=== PATIENT | male | born 1975 | race Two or more races ===

== ENCOUNTER 2017-11-03 00:13 | Emergency (ER) | payer SELFPAY ==
[~2017-11-03] VITALS: Ht 175.3 cm; Wt 72.6 kg
--- NOTE | 2017-11-03 00:20 | NUR ---
TO BED 16 A 42 YO MALE PATIENT BB RA; LEFT FA LACERATION. PATIENT IS AAOX3. VSS. NAD NOTED. SKIN WARM AND DRY. INITIAL WOUND CARE DONE.
[2017-11-03] MEDS ORDERED: TDAP [DIPH/PERTUSSIS/TET] 0.5 ML VIAL IM ONE ×2 (01:00)
[2017-11-03] MEDS ORDERED: CEFAZOLIN 1 GM ONE (01:00)
[2017-11-03] MEDS ORDERED: LIDOCAINE 1%-EPI 1:100,000 20 ML VIAL TP ONE (01:00)
[2017-11-03] MEDS ORDERED: LIDOCAINE 1%-EPI 1:100,000 20 ML VIAL ONE (01:00)
[2017-11-03] MEDS ORDERED: BACI/NEOM/POLY B OINT PKT 1 UDPKT PACKET TP ONE (01:00)
[2017-11-03] MEDS ORDERED: CEFAZOLIN 1 GM VIAL IM ONE (01:00)
[2017-11-03] MEDS ORDERED: WATER FOR INJECTION,STERILE 10 ML ONE (01:01)
--- NOTE | 2017-11-03 01:25 | NUR ---
Dr Sandoval at bedside to suture patient.
[2017-11-03 01:42] VITALS: BP 129/76
--- NOTE | 2017-11-03 01:43 | NUR ---
WOUND DRESSING INTACT. CLEAN AND DRY. Patient discharged to home in stable condition. Written and verbal after care instructions given. Patient verbalizes understanding of instruction. Patient is ambulatory with steady gait, vss. nad noted. no further complaints.
== END 2017-11-03 01:52 | disposition home or self-care (01) ==
LOC: ER 00:14
DX: S51.812A Laceration without foreign body of left forearm, initial encounter (principal); Y08.89XA Assault by other specified means, initial encounter; Y93.89 Activity, other specified; Y92.89 Other specified places as the place of occurrence of the external cause; Y99.8 Other external cause status
CPT/HCPCS: 90715; A4606; A6402; J0690; J3490; Z7610